=== PATIENT | female | born 1985 | race Caucasian/White ===

== ENCOUNTER 2024-12-13 08:37 | Outpatient (CLI) | payer OTHER, SELFPAY ==
--- NOTE | 2024-12-13 08:44 | ECG_ITS ---
Test Date: 2024-12-13 08:57:32 Measurements Intervals Gary Rate: 88 P: 6 HI: 146 QRS: 4 QRSD: 92 T: 3 QT: 370 QTc: 450 Interpretive Statements SINUS RHYTHM CONSIDER INFERIOR INFARCT, AGE INDETERMINATE BASELINE ARTIFACT- I, II, AVR, AVL, AVF, V3 ABNORMAL ECG No previous ECG available for comparison Electronically Signed On 12-13-2024 09:03:31 CDT by Demario Hartley D.O.
--- OUTSIDE RECORDS SUMMARY | 2024-12-13 08:53 | XMS_ITS | Continuity of Care Document ---
Author Organization [facility] Address [address] [place] [address] Exec utive [facility] [address] [place] [address] Phone Care Team Providers Care Leasing Sales Consultant Name Role Phone Leroy Perry Unavailable Unavailable Procedures Procedure Date Office/outpatient Visit, [facility] Advance Directives Directive Yes / No Effective Date File Name No Information Encounters Encounter Description Practice Location Reason(s) For Visit Diagnoses Date Provider Providers Copied on Encounter Office/outpat ient Visit, Est [facility], [id number] [place] [address] [address], [place], [place], [id number], [place] tel:[phone] [facility] No Information [address] , [address], [place], [address], [place]. tel:[phone] Family History Family Member Type Diagnosis Age At Onset No Information Payers Payer name Insurance type Covered libertarian ID Authoriza tion(s) No Information Social History [...]
--- OUTSIDE RECORDS SUMMARY | 2024-12-13 08:53 | XMS_ITS | Clinical Summary ---
Author Organization [facility] Address [address] [address] Care Team Providers Care Ribbon Lapper Tender Name Role Phone Robert Renee MD Primary Care Provider Source Comments [facility],non-owned Affiliates and Associated Physician Practices is amultiple site organization consisting of ambulatory clinics and hospital sitesin [place], [place], [place] and [place]. This disclosure is being madepursuant to the Care Everywhere program and may not contain all information available regarding this patient. Last updated 18.[facility] Allergies Active Allergy Reactions Criticality Noted Date Comments Adhesive Sensitivity Rash Medium 07/02/2019 Active Problems Problem Noted Date Diagnosed Date AMA (advanced maternal age) multigravida 35+ Clomid 07/02/2019 Overview (07/02/2019): IUI done on 03/07/19 with donor sperm. Social History Tobacco Use Types Packs/Day Years Used Date Smoking Tobacco: Never Assessed Comments No Sex and Gender Information Value Date Recorded Sex Assigned at Not on file Legal Sex Female 10:31 AM CDT Gender Identity Not on file Sexual Orientation Not on file Plan of Treatment Health Maintenance Due Date Last Done Comments LIPID TESTING 1983 MAMMOGRAM 1983 HIV SCREENING 10/02/1998 HEPATITIS C SCREENING 09/28/2001 DTAP/TDAP/TD VACCINES (1 - Tdap) 10/02/2002 HEPATITIS B VACCINE (1 of 3 - 19+ 3-dose series) 10/02/2002 COVID-19 VACCINE ( - 2023-2 5 season) 2024 DEPRESSION SCREENING 07/11/2024 INFLUENZA VACCINE (Season Ended) 2025 ZOSTER VACCINE (1 of 2) 10/02/2033 HIB VACCINE Aged Out No longer eligi ble based on patient's age to complete this topic HPV VACCINE Aged Out No longer eligi ble based on patient's age to complete this topic MENINGOCOCCAL (Group B) VACC INE SHARED DECISION-MAKING Aged Out No longer eligibl e based on patient's age to complete this topic MENINGOCOCCAL GROUPS A/C/Y/W VACCINE Aged Out No longer eligible b ased on patient's age to complete this topic PNEUMOCOCCAL VACCINE Aged Out No long er eligible based on patient's age to complete this topic Insurance [facility] Address: [address] [address] Care Teams Ribbon Lapper Tender Relationship Specialty Start Date End Date Robert Renee MD [address] [place] [phone] PCP - General Family Medicine 05/06/15
== END 2024-12-13 08:38 | disposition home or self-care (01) ==
PROVIDERS: Visit Provider Otolaryngology
DX: Z01.810 Encounter for preprocedural cardiovascular examination (principal); R94.31 Abnormal electrocardiogram [ECG] [EKG]; I10 Essential (primary) hypertension
CPT/HCPCS: 93005

== ENCOUNTER 2024-12-17 01:30 | Day surgery (SDC) | payer OTHER, SELFPAY ==
[2024-12-10 15:57] VITALS: BMI 34.3
--- NOTE | 2024-12-10 16:07 | PC.NURSE ---
Report to the Outpatient Waiting Room, entrance under the green pavilion located off [facility], at time _1030_ on date _[id number]_. Planned Procedure Time: _1230_.? Time changes happen often and if your time is changed the preop area will call you the afternoon before. - You and your visitor will be asked to self-screen and do not enter if you have any COVID symptoms. Please call surgeon if you need to reschedule. - A mask is optional within the hospital at this time. Patients may have clear liquids (water, carbonated beverages, clear teas, apple juice) until 3 hours prior to surgery with a maximum of 20 ounces. - No food from midnight until time of surgery and no smoking, or chewing tobacco (or any form of nicotine). No chewing gum, candy or mints. Take only the following medications with a SIP of water on the morning of surgery: ___Nifedipine, and if needed Albuterol, Alprazolam and or Hydroxyzine.____ DO NOT STOP ANY OF YOUR OTHER PRESCRIPTION MEDICATIONS PRIOR TO SURGERY EXCEPT THE FOLLOWING Hold all vitamins and supplements for 3 days per anesthesiologist. Medications to discontinue per physician ____Wegovy last taken 82-91-1997 Date to take last dose Please no make-up, nail mongolian, hairspray, perfume, deodorant, or body powder the day of surgery.? No jewelry (including any body piercings) or valuables the day of surgery, leave them at home.? Please take a shower or bath the night before, or the morning of, surgery with an antibacterial soap.? Wear comfortable, loose fitting clothing.? - Jewelry must be removed prior to entering the operating room.? Rings and piercings that are not removed may be cut off. - The hospital will not accept responsibility for valuables.? - Please leave all valuables, including medications, at home the day of surgery. If you are going home after surgery, a licensed dairy truck driver must drive you home.? - NO public transportation without another adult if you receive anesthesia. - We recommend that an adult stay with you for 24 hours following discharge. - We also recommend that you do not drive, make important decision, drink alcoholic beverages, or take any drugs that were not prescribed by your health care provider for at least 24 hours after your discharge time. Follow any additional instructions given to you from your surgeon. Telephone instructions given to __Vidya___and asked if any additional questions and then verbalized understanding. Patient advised to call surgeon office or pre surgery nurse liaison [phone] if any additional questions.
[2024-12-17] VITALS (9 sets, daily range): BP systolic 111–169; BP diastolic 69–115; PULSE 64–91; RESP 10–18; TEMP 36.4–37.2; O2SAT 94–100
--- OUTSIDE RECORDS SUMMARY | 2024-12-17 01:32 | XMS_ITS | Clinical Summary ---
Author Organization [facility] [employer] Address [address] [place] [address] Care Team Providers Care Nuisance Wildlife Specialist Name Role Phone Robert Renee MD Primary Care Provider [phone] Source Comments [facility],non-owned Affiliates and Associated Physician Practices is amultiple site organization consisting of ambulatory clinics and hospital sitesin [place], [place], [place] and [place]. This disclosure is being madepursuant to the Care Everywhere program and may not contain all information available regarding this patient. Last updated 18.[facility] [employer] Allergies Active Allergy Reactions Criticality Noted Date [...] patient's age to complete this topic Insurance [place] Care Teams Nuisance Wildlife Specialist Relationship Specialty Start Date End Date Robert Renee MD [address] [place] [phone] PCP - General Family Medicine 05/06/15
--- OUTSIDE RECORDS SUMMARY | 2024-12-17 01:32 | XMS_ITS | Continuity of Care Document ---
Author Organization [facility] Address [address] [place] [address] Exec [address] [facility] [address] [place] [address] Phone Care Team Providers Care Bit And Shank Department Supervisor Name Role Phone Leroy Perry Unavailable Unavailable Procedures Procedure Date Office/outpatient Visit, [facility] Advance Directives Directive Yes / No Effective Date File Name No Information Encounters Encounter Description Practice Location Reason(s) For Visit Diagnoses Date Provider Providers Copied on Encounter Office/outpat ient Visit, Est [facility], [address] [place] [address] [address], [place], [place], [id number], [place] tel:[phone] [facility] No Information [address] , [address], [place], [address], [place]. tel:[phone] Family History Family Member Type Diagnosis Age [...]
--- NOTE | 2024-12-17 07:17 | WPDHPUPDATE1 ---
History and Physical Update Update Date/Time: 12/17/24 07:17 History and Physical has been reviewed, including an updated exam of the patient. There are NO changes in the patient's condition. Risks, benefits, and alternatives have been discussed and questions answered. Patient agrees to proceed with procedure.
[2024-12-17] MEDS: ACETAMINOPHEN 500 MG TABLET 1000 MG PO (10:50)
[2024-12-17] MEDS: LACTATED RINGERS 1,000 ML 30 ML IV CONT ×2 (10:55→15:15)
[2024-12-17 12:14] LABS: BEDSIDEPREGUCG Negative (Negative)
--- NOTE | 2024-12-17 12:42 | P.PNAN_ITS ---
Anes - Initial Pre Proc Eval Procedure: Operation Date: 12/17/24 12:30 Proposed Procedures p Image Guided Bilateral Inferior Turbinate Reduction with Outfracture, Bilateral Endoscopic Maxillary Antrostomy, Right Anterior Ethmoidectomy, Right Frontal Sinusotomy, - Chip Sheikh MD s Septoplasty - Chip Sheikh MD Date/Time: 12/17/24 12:42 Surgeon: Chip Sheikh MD Pre Op Diagnosis: acute pharyngitis, chronic sinusitis, gerd Patient Data Age: 39 Gender: F Height: 1.7 m Weight: 99.1 kg Last Vital Signs Temp 37.2 C 12/17/24 10:40 Pulse 81 12/17/24 10:40 Resp 18 12/17/24 10:40 BP 164/78 H 12/17/24 11:31 Pulse Ox 100 12/17/24 10:40 O2 Del Method Room Air 12/17/24 10:40 Allergies Allergy/AdvReac Type Severity Reaction Status Date / Time alcohol Allergy Severe Hives Verified 12/17/24 10:46 adhesive tape Allergy Intermediate Rash Verified 12/17/24 10:46 contact metal agent Allergy Mild Rash Verified 12/17/24 10:46 shrimp AdvReac Mild Unknown Verified 12/17/24 10:46 Home Medications ?Medication ?Instructions ?Recorded ?Confirmed ?Type albuterol sulfate 90 mcg/actuation 2 puff inhalation Q6H PRN 10/15/24 12/10/24 History aerosol inhaler shortness of breath or wheezing alprazolam 0.25 mg tablet 0.25 mg PO QID PRN anxiety 10/15/24 12/10/24 History hydroxyzine HCl 25 mg tablet 25 mg PO Q6H PRN anxiety 10/15/24 12/10/24 History methylphenidate HCl 20 mg 20 mg PO DAILY 10/15/24 12/17/24 History tablet,extended release nifedipine 60 mg tablet,extended 60 mg PO DAILY 10/15/24 12/17/24 History release 24 hr venlafaxine 75 mg capsule,extended 75 mg PO HS 10/15/24 12/17/24 History release 24 hr semaglutide (weight loss) 0.5 0.5 mg subcut WEEKLY 11/19/24 12/10/24 History mg/0.5 mL subcutaneous pen injector (Wefaravy) valacyclovir 1 gram tablet 1,000 mg PO Q12H PRN fever blister 11/28/24 12/10/24 History Laboratory Tests 12/17/24 12:00 POC Urine HCG, Qual Negative (Negative) Patient hx anesthesia problems: none Family hx anesthesia problems: none Results Review: All pre-operative results and documents have been reviewed as part of the pre- operative evaluation. PMFSH Past Medical History Medical History Anxiety Allergies Family History Family History Father Diabetes mellitus Hypertension Depression Heart disease Mother Hypertension Depression Social History Social History Smoking status: Never smoker Tobacco type: cigarettes Alcohol intake: never Substance use: current Substance use type: marijuana Living arrangements: with family Spiritual care concerns: No Anes - Eval Final PreProcedure Day of Procedure 12/17/24 12:42 Patient weight: obese Heart: regular rate and rhythm Lungs: clear to auscultation Airway: Mallampati scale class II Neurological: alert and oriented Last oral intake: >/= 8 hours ASA classification: III Emergent: no Anesthetic plan: proceed Anesthesia type and monitoring: general ETT and standard monitoring Results Review: All pre-operative results and documents have been reviewed as part of the pre- operative evaluation. Informed Consent: The patient's anesthetic plan and its attendant risks and benefits were discussed with the patient/family/POA. Questions were solicited and answers provided to the satisfaction of the patient/family/POA.
[2024-12-17] MEDS: ceFAZolin 2 GM/D5W 50 ML 2 GM/50 ML BAG IVPB (13:05)
[2024-12-17] MEDS: LIDO 1%/EPINEPHRINE 1:100,000 50 ML VIAL INFILTRATE (13:33)
[2024-12-17] MEDS: OXYMETAZOLINE HCL 0.05% NAS 15 ML BTL (*BKC) 1 SPRAY NASAL (13:34)
[2024-12-17] MEDS: MUPIROCIN 2% OINT 22 GM TUBE 1 APPLIC TOPICAL (14:57)
--- NOTE | 2024-12-17 16:23 | P.OP_ITS ---
Procedure Note - Detailed Date of Procedure 12/17/24 Pre-op Diagnosis Recurrent sinusitis chronic sinusitis septal deviation turbinate hypertrophy nasal obstruction Post-op Diagnosis Same Procedure Performed Endoscopic assisted septoplasty, inferior turbinate reduction bilaterally with outfracture, left-sided image guided endoscopic maxillary antrostomy, right- sided image guided endoscopic maxillary antrostomy, right-sided image guided endoscopic frontal sinusotomy, right-sided image guided endoscopic anterior ethmoidectomy Surgeon Chip Sheikh MD Anesthesia General Indications See above Findings Recirculation both maxillary sinuses then were connected to the natural os this was easily performed right anterior ethmoid anterior ethmoid really osteotomy thick bone obstructing the frontal and edematous polypoid tissue in all the aforementioned sinuses, left septal deviation severe history of previous septoplasty which took min extra 20 minutes to get through the scar tissue, large turbinates nicely reduced. Description of Procedure Patient identified consent verified the preoperative holding area. Patient brought to the operating. Time-out performed. General anesthesia induced endotracheal tube secured airway. Patient was prepped draped position procedure confirmed 2nd time-out performed image guidance initiated confirmed 0 degree endoscope utilized for the majority of the procedure total 15 cc 1% lidocaine 1 100,000 parts epinephrine injected bilateral nasal septum inferior turbinates inferior turbinates reduced in the submucosal plane bilaterally with a microdebrider with the [place] 1.9 mm blade. They were then outfractured the [place] elevator. Good reduction Haigler incision made left-sided left nasal septal flap elevated there were 2 tears over the spur and over some scar tissue cartilage cross through with osteotome right nasal septal flap elevated several tears as well the benefit the good thing is no concomitant tears no tears were opposing each other. Deviated septum removed osteotome Asif Brito forceps and Sd forceps. Haigler incision closed with 3 interrupted 5 0 fast gut sutures. Maxillary antrostomies were performed with backbiter straight through cut and double ball tip probe as well as image guidance sure the natural os connected to the surgical os. A 70 degree scope was utilized to ensure that the natural os was connected. Right-sided anterior ethmoidectomy performed with image guidance Kerrison and image guided microdebrider. Right-sided frontal sinusotomy performed with 70 degree scope Mirela esteves instruments. Propel stent was placed at the end of this some positive septae was placed below this the positive septae had no shellfish in it. Wounds bilateral nasal passages copiously irrigated out. With 500 cc sterile normal saline. Bleeding was well controlled. Parham splints placed and sutured anteriorly using a 5 0 sorry 3-0 mattress nylon suture. I performed all dictated portions procedure blood loss 25 cc. No complications. Care the patient given Anesthesiology. Patient taken to PACU. Estimated Blood Loss 25 Drains No Packing Yes (posisep) Pathology None sent Complications No immediate complications Condition Stable Disposition PACU [facility] Billing Surgery - Charge Forward: Surgery Billing
[2024-12-17] MEDS: oxyCODONE HCL (*CRX) 5 MG TAB IR PO (16:34)
== END 2024-12-17 17:08 | disposition home or self-care (01) ==
PROVIDERS: Visit Provider Otolaryngology
PROC: (CPT 31256; principal; 2024-12-17 12:30)
PROC: (CPT 30520; 2024-12-17 12:30)
DX: J32.9 Chronic sinusitis, unspecified (principal); J34.3 Hypertrophy of nasal turbinates; J34.2 Deviated nasal septum; J34.89 Other specified disorders of nose and nasal sinuses; F12.90 Cannabis use, unspecified, uncomplicated; E66.9 Obesity, unspecified; Z68.34 Body mass index [BMI] 34.0-34.9, adult
CPT/HCPCS: 31256; 61782; 31276; 31254; 30520; 30140; A9270; C2625; J0690; J1100; J2003; J2004; J2250; J2405; J2704; J3010; J7050; J7120

== ENCOUNTER 2025-04-25 11:41 | Emergency (ER) | payer OTHER, SELFPAY ==
--- OUTSIDE RECORDS SUMMARY | 2007-02-15 10:03 | XMS_ITS | Continuity of Care Document ---
Author Organization [facility] Address [address] [place] [address] Exec utive [facility] [address] [place] [address] Phone Care Team Providers Care Stone Layer Name Role Phone Leroy Perry Unavailable Unavailable Procedures Procedure Date Office/outpatient Visit, [facility] Advance Directives Directive Yes / No Effective Date File Name No Information Encounters Encounter Description Practice Location Reason(s) For Visit Diagnoses Date Provider Providers Copied on Encounter Office/outpat ient Visit, Est [facility], [id number] [place] [address] [address], [place], [place], [id number], [place] tel:[phone] [facility] No Information [address] , [address], [place], [address], [place]. tel:[phone] Family History Family Member Type Diagnosis Age At Onset No Information Payers Payer name Insurance type Covered green party ID Authoriza tion(s) No Information Social History Type Description Quantity Date Captured Comments Sex Female Smoking Status No Information Chief Complaint And Reason For Visit No Information Reason For Referral Reason For Referral No Information History Of Present Illness Encounter Date Complaint History Of Prese nt Illness No Information Functional Status Date Functional Assessmen t No Information Instructions Date Instruction Additional Infor mation No Information Assessments Type Assessment Date No Information Patient Care Teams Name Effective Dates (start - stop) Status Members No Information
--- NOTE | ~2025-04-25 | CT_ITS ---
CT HEAD NON-CONTRAST Clinical History: headache, hypertension Comparison: None Technique: Unenhanced axial images skull base to vertex Coronal, sagittal reformats CT images acquired with automatic exposure control for dose reduction DLP: 605 mGy-cm Findings: Sulci, ventricles: Unremarkable. No intracerebral hemorrhage. No evidence acute territorial infarct. No mass effect, midline shift. Bony calvarium intact. Visualized paranasal sinuses: Clear. Mastoid air cells: Clear. IMPRESSION: 1. No acute intracranial findings. Reviewed, dictated and finalized at location R.
[2025-04-25 12:32] VITALS: BP 156/108; PULSE 88; RESP 16; TEMP 36.6; O2SAT 100
--- NOTE | 2025-04-25 13:20 | ED.RECABL ---
HPI - Recheck/Abnormal Lab/Rx General Chief Complaint: Recheck/Abnormal Lab/Rx Stated Complaint: ELEVATED BP HASN'T TAKEN HER MEDS Time Seen by Provider: 04/25/25 13:20 Focused HPI: This is a 39 year old female that presents to the ER for elevated blood pressure. Reports high readings over the last 24 hours. Reports readings 140s-160s/80s-100s. She takes Nifedipine for her blood pressure. She has been taking this as prescribed. Reports she has associated headaches. Denies chest pain, shortness of breath. GENERAL: Well-appearing, well-nourished, and in no acute distress. HEAD: Normocephalic, atraumatic. CHEST: Clear to auscultation. ?No respiratory distress. HEART: Regular rate and rhythm.? NEURO: ?Alert and oriented x3. Patient screened in triage and initial orders placed.? ?Additional care and disposition to be based upon?diagnostic testing and treatment. Related Data Home Medications ?Medication ?Instructions ?Recorded ?Confirmed ?Last Taken ?Type alprazolam 0.25 mg tablet 0.25 mg PO QID PRN anxiety 10/15/24 01/03/25 Unknown History hydroxyzine HCl 25 mg tablet 25 mg PO Q6H PRN anxiety 10/15/24 01/03/25 Unknown History methylphenidate HCl 20 mg 20 mg PO DAILY 10/15/24 01/03/25 12/16/24 History tablet,extended release nifedipine 60 mg tablet,extended 60 mg PO DAILY 10/15/24 01/03/25 12/17/24 History release 24 hr venlafaxine 75 mg capsule,extended 75 mg PO HS 10/15/24 01/03/25 12/16/24 History release 24 hr semaglutide (weight loss) 0.5 0.5 mg subcut WEEKLY 11/19/24 01/03/25 12/01/24 History mg/0.5 mL subcutaneous pen injector (Wegovy) valacyclovir 1 gram tablet 1,000 mg PO Q12H PRN fever blister 11/28/24 01/03/25 Unknown History buspirone PO 02/06/25 02/06/25 Unknown History Allergies Allergy/AdvReac Type Severity Reaction Status Date / Time alcohol Allergy Severe Hives Verified 04/25/25 11:42 adhesive tape Allergy Intermediate Rash Verified 04/25/25 11:42 contact metal agent Allergy Mild Rash Verified 04/25/25 11:42 shrimp AdvReac Mild Unknown Verified 04/25/25 11:42 [facility] Past Medical History Medical History Anxiety Allergies Family History Family History Father Diabetes mellitus Hypertension Depression Heart disease Mother Hypertension Depression Social History Social History Smoking status: Never smoker Tobacco type: cigarettes Alcohol intake: never Substance use: current Substance use type: marijuana Living arrangements: with family Spiritual care concerns: No Course Vital Signs Vital signs: Vital Signs Temperature 97.8 F 04/25/25 12:32 Pulse Rate 88 04/25/25 12:32 Respiratory Rate 16 04/25/25 12:32 Blood Pressure 156/108 H 04/25/25 12:32 Pulse Oximetry 100 04/25/25 12:32 Oxygen Delivery Room Air 04/25/25 12:32 Temperature 97.8 F 04/25/25 12:32 Pulse Rate 88 04/25/25 12:32 Respiratory Rate 16 04/25/25 12:32 Blood Pressure 156/108 H 04/25/25 12:32 Pulse Oximetry 100 04/25/25 12:32 Oxygen Delivery Room Air 04/25/25 12:32 MDM - Recheck/Abnormal Lab/Rx MDM Narrative Medical decision making narrative: patient left after medical screening exam and before any further evaluation or management Discharge Plan Discharge Clinical Impression: Hypertension Qualifiers: Hypertension type: unspecified Qualified Code(s): I10 - Essential (primary) hypertension Patient Disposition: Elopement After Seen by Prov Patient Language: Israeli Prescriptions: No Action Wegovy 0.5 mg/0.5 mL pen injector 0.5 mg subcut WEEKLY valacyclovir 1 gram tablet 1,000 mg PO Q12H PRN (Reason: fever blister) buspirone PO mupirocin [Centany] 2 % ointment 1 applic topical QID Qty: 44 12RF venlafaxine 75 mg capsule,extended release 24hr 75 mg PO HS methylphenidate HCl 20 mg tablet extended release 20 mg PO DAILY nifedipine 60 mg tablet extended release 24hr 60 mg PO DAILY alprazolam 0.25 mg tablet 0.25 mg PO QID PRN (Reason: anxiety) hydroxyzine HCl 25 mg tablet 25 mg PO Q6H PRN (Reason: anxiety) ofloxacin 0.3 % drops 5 drp EACH EAR TID 7 Days Qty: 10 1RF doxycycline hyclate 100 mg tablet 100 mg PO BID Qty: 20 0RF Follow-up/Referrals: PHYSICIAN NOT ON STAFF,NONSTAFF [Primary Care Provider]
--- NOTE | 2025-04-25 13:50 | PC.NURSE ---
PT LEFT DEPARTMENT WE ARE LEAVING AMBULATORY WITH A STEADY GAIT.
--- OUTSIDE RECORDS SUMMARY | 2025-04-25 17:47 | XMS_ITS | Clinical Summary ---
Author Organization [facility] Address [address] [place] [address] Care Team Providers Care Christmas Tree Grower Name Role Phone Robert Renee MD Primary Care Provider Source Comments [facility],non-owned Affiliates and Associated Physician Practices is amultiple site organization consisting of ambulatory clinics and hospital sitesin [place], [place], [place] and [place]. This disclosure is being madepursuant to the Care Everywhere program and may not contain all information available regarding this patient. Last updated 18.[facility] Allergies Active Allergy Reactions Criticality Noted Date [...] of 3 - 19+ 3-dose series) 10/02/2002 HPV VACCINE (1 - 3-dose SCDM series) 10/02/2010 DEPRESSION SCREENING 07/11/2024 COVID-19 VACCINE (1 - 2023-2 5 season) 2025 INFLUENZA VACCINE (#1) 2025 ZOSTER VACCINE (1 of 2) 10/02/2033 [...] patient's age to complete this topic Insurance Sociall Care Teams Christmas Tree Grower Relationship Specialty Start Date End Date Robert Renee MD [address] [place] [phone] PCP - General Family Medicine 05/06/15
--- OUTSIDE RECORDS SUMMARY | 2025-04-25 17:47 | XMS_ITS | Encounter Summary ---
Author Organization [facility] Address [address] [place] [id number] Care Team Providers Care Infectious Disease Physician Name Role Phone Shelbi Burns MD Primary Care Provider [phone] Floyd Serrano MD Primary Care Provider [phone] Encounter Details Date Type Department Care Team (Late st Contact Info) Description 12/16/2018 Abstract SFL CONVERSION [address] [place] [address] , Generic Conversion, Social History Tobacco Use Types Packs/Day Years Used Date Smoking Tobacco: Never Assessed Comments Unknown Sex and Gender Information Value Date Recorded Sex Assigned at Female 11/13/2019 8:41 PM CDT Legal Sex Female 9:10 PM CDT Gender Identity Female 11/13/2019 8:41 PM CDT Sexual Orientation Lesbian or Parada 11/13/2019 8: 41 PM CDT documented as of this encounter Plan of Treatment Not on file documented as of this encounter Visit Diagnoses Not on filedocumented in this encounter Care Teams Infectious Disease Physician Relationship Specialty Start Date End Date Shelbi Burns MD [address] [place] [address] PCP - General FAMILY PRACTICE 06/29/19 10/11/19 Floyd Serrano MD [address] [place] [address] PCP - General FAMILY PRACTICE 10/12/19 documented as of this encounter
--- OUTSIDE RECORDS SUMMARY | 2025-04-25 17:47 | XMS_ITS | Clinical Summary ---
Author Organization [facility] Address [facility] [place] [address] Care Team Providers Care Customer Manager Name Role Phone Floyd Liao MD Primary Care Provider [phone] Allergies Active Allergy Reactions Criticality Noted Date Comments Metals Rash Medium 10/12/2019 Shellfish-Derived Products Hives 1 Tape Rash Low 10/12/2019 Medications NIFEdipine XL 30 MG 24 hr tablet Take 30 mg by mouth daily. Active valACYclovir 500 MG tablet Take 500 mg by mouth daily as needed. Active methylphenidate 10 MG ER capsule Take 10 mg by mouth every morning. 07/01/2020 Active naproxen sodium (ALEVE) 220 MG tablet Take 220 mg by mouth 2 (two) times daily with meals. Active sertraline 25 MG tablet Take 25 mg by mouth daily. 08/22/2020 Active ALPRAZolam 0.25 MG tablet Take 1 tablet by mouth as needed. 02/17/2021 Active montelukast 10 MG tablet Take 1 tablet by mouth daily. 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 Chronic hypertension 11/13/2019 Resolved Problems Problem Noted Date Diagnosed Date Resolved Date Contusion of left elbow, initial encounter 06/20/2020 07/01/2020 Sprain of lateral collateral ligament of left knee, initial encounter 06/19/2020 07/01/2020 Family History Medical History Relation Comments Diabetes Father Heart Disease Father Rheumatoid Arthritis Mother No Known Problems Sister 1 No Known Problems Sister 2 Relation Status Comments Father Mother Alive Sister 1 Alive Sister 2 Alive Social History Tobacco Use Types Packs/Day Years Used Date Smoking Tobacco: Never Smokeless Tobacco: Never Alcohol Use Standard Drinks/Week Comments Not Currently 0 (1 standard drink = 0.6 oz pur e alcohol) Causes hives Humiliation, Afraid, Rape, and Kick questionnair e Answer Date Recorded Fear of Current or Ex-Partner No Emotionally Abused No 11/13/2019 Physically Abused No 11/13/2019 Sexually Abused No 11/13/2019 Social Connection and Isolation Panel Answer Date Recorded Frequency of Communication w ith Friends and Family More than three times a week 11/13/2019 Frequency of Social Gatherin gs with Friends and Family Not on file 11/13/2019 Attends Congregation Services 1 to 4 times per year 11/13/2019 Active Member of Clubs or Organizations Yes 11/13/2019 Attends Club or Organization Meetings More than 4 times per year 11/13/2019 Marital Status 11/13/2019 Overall Financial Resource Strain (CARDIA) Answe r Date Recorded Difficulty of Paying Living Expenses Not hard at all 11/13/2019 [facility] [place] [facility] - Occupational Stress Questionnaire Answer Date Recorded Feeling of Stress Only a little 11/13/2019 Exercise Vital Sign Answer Date Recorde d Days of Exercise per Week 3 days 2019 Minutes of Exercise per Session 30 min 11/13/2019 Hunger Vital Sign Answer Date Recorded Worried About Running Out of Food in the Last Ye ar Never true 11/13/2019 Ran Out of Food in the Last Year Never true 11/13/2019 PRAPARE - Transportation Answer Date Re corded Lack of Transportation (Medical) Patient decline d 11/13/2019 Lack of Transportation (Non-Medical) Patient dec lined 11/13/2019 Comments No Sex and Gender Information Value Date Recorded Sex Assigned at Female 11/13/2019 8:41 PM CDT Legal Sex Female 9:10 PM CDT Gender Identity Female 11/13/2019 8:41 PM CDT Sexual Orientation Lesbian or Parada 11/13/2019 8: 41 PM CDT Last Filed Vital Signs Vital Sign Reading Time Taken Comments Blood Pressure 127/77 11/16/2019 12:30 PM CDT Pulse 80 11/16/2019 12:30 PM CDT Temperature 36.4 C (97.5 F) 11/16/2019 12:30 PM CDT Respiratory Rate 16 11/16/2019 12:30 PM CDT Oxygen Saturation 100% 11/16/2019 1:00 AM CDT Inhaled Oxygen Concentration - - Weight 108.9 kg (240 lb) 02/20/2021 8:43 AM CDT Height 170.2 cm (5' 7) 02/20/2021 8:43 AM CDT Body Mass Index 37.59 02/20/2021 8:43 AM CDT Plan of Treatment Health Maintenance Due Date Last Done Comments Cervical Cancer Screening Pa p Smear (Age 30 to 64) Every 3 Years 1983 Annual Physical 10/02/1986 Hepatitis C 10/02/2001 DTaP, Tdap and Td Vaccines ( 1 - Tdap) 10/02/2002 Hepatitis B Vaccines (1 of 3 - 19+ 3-dose series) 10/02/2002 HPV Vaccines (1 - 3-dose SCD M series) 10/02/2010 Cervical Cancer Screening Pa p with HPV Testing (Age 30 to 64) Every 5 Years 10/02/2013 Cervical Cancer Screening wi HPV 10/02/2013 COVID-19 Vaccine (2023-2 5 season) 2025 Influenza Adult (#1) 2025 Mammogram Screening 03/21/2026 03/21/2024, 02/10/2024 Hepatitis A Vaccines Aged Out No long er eligible based on patient's age to complete this topic Meningococcal B Vaccine Aged Out No l onger eligible based on patient's age to complete this topic Meningococcal Vaccine Aged Out No jozef manuel eligible based on patient's age to complete this topic Pneumococcal Vaccine: Pediatrics (0 to 5 Years) and At-Risk Patients (6 to 49 Years) Aged Out No longer eligible b ased on patient's age to complete this topic RSV Immunizations Under 20 Months Aged Out No longer eligible b ased on patient's age to complete this topic Procedures Procedure Name Priority Date/Time Associated Diagnosis Comments MG CLEMENT Kruse LUDY BILAT DIGI Routine 03/21/2024 10:04 AM CDT Abnormal breast exam from Last 3 Months or Most Recently Relevant to Health Maintenance Results * MG DIAG W LUDY BILAT DIGI (03/21/2024 10:04 AM CDT) Anatomical Region Laterality Modality Breast Bilateral Mammography, Rad iographic Imaging 03/21/2024 10:2 3 AM CDT Impressions 03/21/2024 10:32 AM CDT IMPRESSION: Bilateral nodules identified on baseline screening are benign lymph nodes. No mammographically or sonographically suspicious abnormality is identified. Follow-up in February 2025 for routine screening would now seem adequate. Recommendation: 1: Routine screening mammogram Bilateral in February 2025 Overall assessment: ACR BI-RADS Category 2 - Benign. Return for Routine Follow-Up: Yes Ordered By: FLOYD LIAO Interpreted By: Dakota Valente MD, 03/21/2024 10:23 AM Narrative 03/21/2024 10:32 AM CDT [address] [place] [address] Examination: Bilateral digital diagnostic mammogram with CAD. [id number] Clinical history: Follow-up, abnormal screening mammogram. Comparison: 02/10/2024. Technique: Bilateral true lateral and spot compression CC and MLO digital mammograms. The exam was interpreted with the use of a computer-aided detection (CAD) system. Additional 3-D Tomosynthesis images were acquired. Tissue density: The breast tissue contains scattered fibroglandular densities. Findings: The patient returned for additional diagnostic imaging to further evaluate the upper-outer quadrant opacities identified on baseline screening. On the left, the finding is confirmed lying superficially near the 3:00 position projecting approximately 7.5 cm deep to the nipple on the true lateral view. It is best appreciated on CC spot compression tomosynthesis appearing ovoid, sharply circumscribed and macrolobulated measuring approximately 9 x 5 mm. There is a central fatty cleft or hilus. There is no associated architectural distortion or microcalcification. On the right, the finding is confirmed lying superficially near the 10:00 position projecting approximately 8 cm deep to the nipple on the true lateral view. It is best appreciated on true lateral tomosynthesis appearing reniform and smoothly marginated measuring approximately 7 mm in greatest dimension. There is no associated architectural distortion or microcalcification. Examination: Bilateral breast ultrasound. Technique:Grayscale and color Doppler images. Findings: On the left, evaluation at the 3:00 position 5 cm from the nipple demonstrates a 9 mm in greatest dimension morphologically benign-appearing lymph node judged concordant with the mammographic finding. [place] appearing tissue architecture is otherwise demonstrated. No other sonographically discrete finding is identified. No sonographically suspicious abnormality is identified. On the right, evaluation at the 10:00 position 6 cm from the nipple demonstrates a 7 mm in greatest dimension morphologically benign-appearing lymph node judged concordant with the mammographic finding. [place] appearing tissue architecture is otherwise demonstrated. No other sonographically discrete finding is identified. No sonographically suspicious abnormality is identified. Based on these findings, routine mammographic follow-up in February 2025 would now seem adequate. These findings were discussed with the patient. us Floyd Liao MD MAMMO Final Result from Last 3 Months or Most Recently Relevant to Health Maintenance Insurance [employer] OPEN ACCESS [facility] YOSEPH DE LEON Member Subscriber Plan / Payer (Ef fective for All Dates) Name:Vidya Loving Relation to Subscriber:Self Name:Vidya Loving Payer ID:Not on file Group ID:Not on file Type:Not on file Address: [address] [employer] on file Advance Directives * Full Code (Latest Code Status on File) Date Activated Date Inactivated Comments 11/13/2019 8:01 PM 11/16/2019 4:53 PM * Full Code Date Activated Date Inactivated Comments 11/09/2019 9:17 AM 11/09/2019 1:11 PM Care Teams Customer Manager Relationship Specialty Start Date End Date Floyd Liao MD [address] [place] [address] PCP - General FAMILY PRACTICE 10/12/19
== END 2025-04-25 17:01 | disposition left against medical advice (07) ==
PROVIDERS: Emergency Provider Physician Assistant
DX: I10 Essential (primary) hypertension (principal); F41.9 Anxiety disorder, unspecified; Z79.899 Other long term (current) drug therapy
CPT/HCPCS: 70450; 99199; 99284